=== PATIENT | male | born 1990 | race Asian ===

== ENCOUNTER 2017-08-07 22:43 | Emergency (ER) | payer MEDICAID ==
[~2017-08-07] VITALS: Ht 177.8 cm; Wt 63.6 kg
[2017-08-07] MEDS ORDERED: ALBU8HFA IH (22:55)
[2017-08-07] MEDS ORDERED: METHOCARBAMOL 500 MG TABLET PO ONE (23:45)
[2017-08-07] MEDS ORDERED: KETOROLAC TROMETHAMINE 30 MG/ML VIAL IM ONE (23:45)
[2017-08-08 00:01] VITALS: BP 138/87
== END 2017-08-08 00:01 | disposition home or self-care (01) ==
LOC: EMS 22:48
DX: M54.9 Dorsalgia, unspecified (principal)
CPT/HCPCS: 96372; 99283; J1885

== ENCOUNTER 2017-08-25 22:37 | Emergency (ER) | payer MEDICAID ==
[~2017-08-25] VITALS: Ht 177.8 cm; Wt 63.6 kg
[~2017-08-25 22:37] MED LIST: ALBU8HFA IH
[2017-08-25] MEDS ORDERED: HYDROCODONE/ACETAMINOPHEN 5-325 MG TABLET PO ONE (23:00)
[2017-08-26 01:29] VITALS: BP 135/97
== END 2017-08-26 01:47 | disposition home or self-care (01) ==
LOC: EMS 22:38
DX: S29.012A Strain of muscle and tendon of back wall of thorax, initial encounter (principal); M62.830 Muscle spasm of back; J45.909 Unspecified asthma, uncomplicated; Z91.013 Allergy to seafood; X58.XXXA Exposure to other specified factors, initial encounter; Y93.89 Activity, other specified; Y92.89 Other specified places as the place of occurrence of the external cause; Y99.8 Other external cause status
CPT/HCPCS: 72072; 99284